=== PATIENT | female | born 1965 | race Two or more races ===

== ENCOUNTER 2018-03-17 19:43 | Emergency (ER) | payer OTHER ==
[~2018-03-17] VITALS: Ht 157.5 cm; Wt 89.4 kg
== END 2018-03-18 01:10 | disposition home or self-care (01) ==
LOC: ER 19:43
DX: S60.222A Contusion of left hand, initial encounter (principal); S60.212A Contusion of left wrist, initial encounter; S50.02XA Contusion of left elbow, initial encounter; W18.39XA Other fall on same level, initial encounter; Y93.89 Activity, other specified; Y92.89 Other specified places as the place of occurrence of the external cause; Y99.8 Other external cause status